=== PATIENT | male | born 1985 | race Two or more races ===

== ENCOUNTER 2024-03-21 09:45 | Emergency (ER) | payer OTHER ==
[~2024-03-21] VITALS: Ht 172.7 cm; Wt 81.6 kg
[2024-03-21] MEDS ORDERED: GABA-1171 PO (10:04)
[2024-03-21] MEDS ORDERED: DICL100G10 TOP (10:04)
[2024-03-21] MEDS ORDERED: NAPR-832 PO (10:04)
[2024-03-21 11:07] LABS: BASO % 0.7 % (0.0-1.0); EOS # 0.1 10^3/uL (0.0-0.5); EOS % 1.2 % (0.0-3.0); HEMATOCRIT 47.4 % (42.0-52.0); HEMOGLOBIN 16.3 g/dl (13.5-17.5); LYMPH # 1.9 10^3/uL (1.5-5.0); MEAN CORPUSCULAR HEMOGLOBIN 30.2 pg (27.0-33.0); MEAN CORPUSCULAR HGB CONC 34.4 g/dl (32.0-36.5); MEAN CORPUSCULAR VOLUME 87.9 fl (80.0-96.0); MONO # 0.4 10^3/uL (0.0-0.8); MONO % 10.4 % (2.0-8.0); NEUTROPHILS # 1.6 10^3/uL (1.5-8.5); NEUTROPHILS % 39.5 % (36.0-66.0); PLATELET COUNT, AUTOMATED 253 10^3/uL (150-450); RED BLOOD COUNT 5.39 10^6/uL (4.30-6.10)
[2024-03-21] MEDS: MORPHINE 4 MG/ML 1ML VIAL IV ONE (11:30)
[2024-03-21 11:34] LABS: LIPASE 36 U/L (12-53)
[2024-03-21 11:36] LABS: ALBUMIN 4.3 G/DL (3.2-5.2); ALKALINE PHOSPHATASE 108 U/L (46-116); ALT/SGPT 39 U/L (7.0-40); AST/SGOT 18 U/L (<34); BILIRUBIN,DIRECT 0.2 MG/DL (<0.4); BILIRUBIN,TOTAL 0.5 MG/DL (0.3-1.2); BLOOD UREA NITROGEN 14 MG/DL (9-23); CALCIUM LEVEL 9.6 MG/DL (8.5-10.1); CARBON DIOXIDE LEVEL 29 MMOL/L (20-31); CHLORIDE LEVEL 108 MMOL/L (98-107); CREATININE FOR GFR 1.14 MG/DL (0.70-1.30); GLOMERULAR FILTRATION RATE > 60.0 (>60); GLUCOSE, FASTING 75 MG/DL (60-100); POTASSIUM SERUM 4.5 MMOL/L (3.5-5.1); SODIUM LEVEL 141 MMOL/L (136-145); TOTAL PROTEIN 7.9 G/DL (5.7-8.2)
[2024-03-21 11:40] LABS: HCG, SERUM QUALITATIVE NEGATIVE
[2024-03-21] MEDS ORDERED: ISOVUE-370 76% 100ML VIAL As Ordered ONE (11:58)
[2024-03-21] MEDS: PANTOPRAZOLE 40MG VIAL IV ONE (12:28)
[2024-03-21] MEDS: NS 1,000 ML IV ONE (12:28)
[2024-03-21] MEDS: ACETAMINOPHEN *IV* 1,000 MG in IV 1 EA IV ONE (12:29)
[2024-03-21] MEDS: ONDANSETRON 4MG 2ML VIAL IV ONE (13:24)
[2024-03-21] MEDS: MAALOX 30 ML SUSP *UDC PO ONE (13:43)
[2024-03-21] MEDS ORDERED: CARA1TAB6 PO (14:33)
[2024-03-21] MEDS ORDERED: PROT1TAB2 PO (14:33)
[2024-03-21 14:50] VITALS: BP 134/75; TEMP 97; O2SAT 100
== END 2024-03-21 14:51 | disposition home or self-care (01) ==
LOC: M ED 09:45
DX: K29.70 Gastritis, unspecified, without bleeding (principal); N39.41 Urge incontinence
CPT/HCPCS: 74177; 80048; 80076; 81001; 83690; 84703; 85025; 96365; 96375; 99284; J0131; J2405; J2470; Q9967